=== PATIENT | female | born 1985 | race Caucasian/White ===

== ENCOUNTER 2016-10-27 09:10 | Observation (INO) | payer OTHER ==
[2016-10-27 10:20] VITALS: BP 148/84
== END 2016-10-27 10:25 | disposition home or self-care (01) ==
LOC: 4S 09:10
PROVIDERS: ADMIT Obstetrics & Gynecology; ATTEND Obstetrics & Gynecology
DX: Z34.93 Encounter for supervision of normal pregnancy, unspecified, third trimester (principal); Z3A.39 39 weeks gestation of pregnancy
CPT/HCPCS: 59025; G0378

== ENCOUNTER 2016-10-31 10:54 | Inpatient (IN) | payer OTHER ==
[~2016-10-31] VITALS: Ht 162.6 cm; Wt 97.5 kg
[2016-11-03] MEDS ORDERED: PREN-134 PO (13:22)
[2016-11-03 13:36] VITALS: BP 130/83
[2016-11-03] MEDS ORDERED: MISOPROSTOL 25 MCG TABLET PR SCH (15:00)
[2016-11-03] MEDS ORDERED: OXYTOCIN 30 UNITS/LACT RINGERS 500 ML IV ONE (15:01)
[2016-11-03] MEDS ORDERED: RINGERS SOLUTION,LACTATED 1,000 ML IV PRN (15:01)
[2016-11-03] MEDS ORDERED: METOCLOPRAMIDE HCL 5 MG/ML 2 ML VIAL IVP PRN (15:15)
[2016-11-03] MEDS ORDERED: CITRIC ACID/SODIUM CITRATE 30 ML SOLUTION UDCUP PO PRN (15:15)
[2016-11-03] MEDS ORDERED: METHYLERGONOVINE MALEATE 0.2 MG/ML VIAL IM PRN (15:15)
[2016-11-03] MEDS ORDERED: LIDOCAINE HCL/PF 1% 30 ML VIAL INJ PRN (15:15)
[2016-11-03] MEDS: RINGERS SOLUTION,LACTATED 1,000 ML IV SCH ×2 (15:24→22:16)
[2016-11-03 15:40] LABS: BASOPHILS % (AUTO) 0.7 % (0.0-2.0); EOSINOPHILS % (AUTO) 1.8 % (1.0-6.0); HEMATOCRIT 40.6 % (36-46); HEMOGLOBIN 13.7 g/dL (12.0-16.0); LYMPHOCYTES # (AUTO) 2.7 K/uL (1.0-4.8); LYMPHOCYTES % (AUTO) 34.3 % (22.0-44.0); MEAN CORPUSCULAR HEMOGLOBIN 31.2 pg (26.0-34.0); MEAN CORPUSCULAR HGB CONC 33.8 G/dL (31.0-37.0); MEAN CORPUSCULAR VOLUME 92 fL (80-100); MONOCYTES # (AUTO) 0.4 K/uL (0.1-1.0); NEUTROPHILS # (AUTO) 4.6 K/uL (1.8-7.7); NEUTROPHILS % (AUTO) 58.2 % (40.0-70.0); RED CELL DISTRIBUTION WIDTH 14.2 % (11.5-14.5)
[2016-11-03] MEDS ORDERED: OXYGEN THERAPY IH SCH (20:00)
[2016-11-03] MEDS ORDERED: OXYTOCIN 30 UNITS/LACT RINGERS 500 ML IV PRN (22:07)
[2016-11-03] MEDS: FentaNYL CITRATE-PF 100 MCG/2 ML VIAL IVP PRN ×2 (22:32→22:38)
[2016-11-04] MEDS ORDERED: FentaNYL CITRATE-PF 100 MCG/2 ML VIAL ONE (00:25)
[2016-11-04] MEDS ORDERED: FentaNYL/BUPIV 0.125%/NS/PF 200 ML ED ONE (00:25)
[2016-11-04] MEDS ORDERED: TERBUTALINE SULFATE 1 MG/ML VIAL ONE (01:29)
[2016-11-04] MEDS ORDERED: TERBUTALINE SULFATE 1 MG/ML VIAL SQ PRN (01:45)
[2016-11-04] MEDS ORDERED: LIDOCAINE HCL 2%/EPI 1:200,000/PF 10 ML VIAL ONE (01:56)
[2016-11-04] MEDS ORDERED: LIDOCAINE HCL/PF 1% 30 ML VIAL INJ PRN (02:45)
[2016-11-04] MEDS ORDERED: MEASLES/MUMPS/RUBELLA VACCINE, LIVE 0.5 ML/VIAL SQ ONE (02:45)
[2016-11-04] MEDS ORDERED: OxyCODONE HCL/ACETAMINOPHEN 5-325 MG TABLET PO PRN ×2 (02:45)
[2016-11-04] MEDS ORDERED: NALOXONE HCL 0.4 MG/ML VIAL IVP PRN (03:15)
[2016-11-04] MEDS ORDERED: DiphenhydrAMINE HCL 50 MG/ML VIAL IVP PRN (03:15)
[2016-11-04] MEDS ORDERED: NALBUPHINE HCL 10 MG/ML VIAL IVP PRN ×2 (03:15)
[2016-11-04] MEDS ORDERED: MEPERIDINE-PF 25 MG/ML SYRINGE IVP PRN (03:15)
[2016-11-04] MEDS ORDERED: ONDANSETRON HCL 4 MG/2 ML VIAL IVP PRN (03:15)
[2016-11-04] MEDS ORDERED: NALBUPHINE HCL 10 MG/ML VIAL IVP SCH (04:00)
[2016-11-04] MEDS: FentaNYL CITRATE-PF 100 MCG/2 ML VIAL IVP PRN ×2 (07:51→14:22)
[2016-11-04] MEDS ORDERED: OXYGEN THERAPY IH SCH ×2 (08:00)
[2016-11-04] MEDS: SENNA/DOCUSATE SODIUM 187-50 MG TABLET PO SCH ×2 (09:00→21:33)
[2016-11-04] MEDS: RINGERS SOLUTION,LACTATED 1,000 ML IV SCH ×2 (10:28→17:41)
[2016-11-04] MEDS ORDERED: GLYCOPYRROLATE 0.2 MG/ML VIAL IM ONE (12:00)
[2016-11-04] MEDS ORDERED: ONDANSETRON HCL 4 MG/2 ML VIAL IVP ONE (12:00)
[2016-11-04] MEDS ORDERED: EPHEDrine SULFATE 50 MG/ML VIAL IM ONE (12:00)
[2016-11-04] MEDS: OXYGEN THERAPY IH SCH (19:26)
[2016-11-04] MEDS ORDERED: NALBUPHINE HCL 10 MG/ML VIAL IVP ONE (20:00)
[2016-11-04] MEDS: MAGNESIUM HYDROXIDE SUSPENSION 30 ML UDCUP PO SCH (21:33)
[2016-11-05 06:00] LABS: BASOPHILS % (AUTO) 0.3 % (0.0-2.0); EOSINOPHILS % (AUTO) 0.5 % (1.0-6.0); HEMATOCRIT 40.4 % (36-46); HEMOGLOBIN 13.8 g/dL (12.0-16.0); LYMPHOCYTES # (AUTO) 3.1 K/uL (1.0-4.8); MEAN CORPUSCULAR HEMOGLOBIN 31.4 pg (26.0-34.0); MEAN CORPUSCULAR HGB CONC 34.1 G/dL (31.0-37.0); MEAN CORPUSCULAR VOLUME 92 fL (80-100); MONOCYTES # (AUTO) 0.9 K/uL (0.1-1.0); MONOCYTES % (AUTO) 5.1 % (2.0-9.0); NEUTROPHILS # (AUTO) 12.9 K/uL (1.8-7.7); NEUTROPHILS % (AUTO) 76.1 % (40.0-70.0); RED BLOOD CELL COUNT(AUTO) 4.39 MIL/uL (4.00-5.20)
[2016-11-05] MEDS: MAGNESIUM HYDROXIDE SUSPENSION 30 ML UDCUP PO SCH ×2 (08:00→21:52)
[2016-11-05] MEDS: SENNA/DOCUSATE SODIUM 187-50 MG TABLET PO SCH ×2 (08:00→21:52)
[2016-11-05] MEDS ORDERED: FentaNYL CITRATE-PF 100 MCG/2 ML VIAL IVP ONE (12:00)
[2016-11-05] MEDS: IBUPROFEN 800 MG TABLET PO PRN ×2 (13:08→21:53)
[2016-11-05] MEDS: OXYGEN THERAPY IH SCH (13:48)
[2016-11-06] MEDS: OXYGEN THERAPY IH SCH (08:00)
[2016-11-06] MEDS: SENNA/DOCUSATE SODIUM 187-50 MG TABLET PO SCH (08:45)
[2016-11-06] MEDS: IBUPROFEN 800 MG TABLET PO PRN (08:45)
[2016-11-06] MEDS: MAGNESIUM HYDROXIDE SUSPENSION 30 ML UDCUP PO SCH (08:46)
[2016-11-06] MEDS ORDERED: IBUP-2070 PO (10:31)
[2016-11-06] MEDS ORDERED: PERCT PO (10:32)
== END 2016-11-06 15:45 | disposition home or self-care (01) | DRG 766 ==
LOC: OBSVTOIN 11-03 13:10 → 4S 11-03 13:10
PROVIDERS: ADMIT Obstetrics & Gynecology; ATTEND Obstetrics & Gynecology
PROC: 10D00Z1 Extraction of Products of Conception, Low, Open Approach (ICD-10-PCS; principal; 2016-11-04)
DX: O82 Encounter for cesarean delivery without indication (principal); Z37.0 Single live birth; Z3A.40 40 weeks gestation of pregnancy
CPT/HCPCS: 86850; 86900; 86901; J0690; J2300; J2405; J2590; J2765; J3010; J3105; J3490; J7120